=== PATIENT | male | born 1990 | race Caucasian/White ===

== ENCOUNTER 2017-01-12 13:14 | Emergency (ER) | payer OTHER ==
[~2017-01-12] VITALS: Ht 190.5 cm; Wt 98.5 kg
[2017-01-12] MEDS ORDERED: SODIUM CHLORIDE 0.9% 1,000 ML IV ONE (13:59)
[2017-01-12] MEDS ORDERED: SODIUM CHLORIDE FLUSH 10ML SYR IVF ONE (14:00)
[2017-01-12] MEDS ORDERED: FAMOTIDINE 20 MG/2 ML IVP ONE (14:00)
[2017-01-12] MEDS ORDERED: ONDANSETRON 2MG/ML, 2ML IVPush ONE (14:00)
[2017-01-12] MEDS ORDERED: SODIUM CHLORIDE 0.9% 1,000ML IVBOLUS ONE (14:00)
[2017-01-12] MEDS ORDERED: FAMOTIDINE 20 MG/2 ML ONE (14:26)
[2017-01-12] MEDS ORDERED: ONDANSETRON 2MG/ML, 2ML ONE (14:26)
[2017-01-12 14:29] LABS: HEMATOCRIT 46.2 % (39.2-51.8); HEMOGLOBIN 16.3 g/dL (13.7-18.0); WHITE BLOOD COUNT 5.8 x10^3/uL (3.4-10)
[2017-01-12 14:40] LABS: ASPARTATE AMINO TRANSFERASE 38 U/L (15-37); BLOOD UREA NITROGEN 13 mg/dL (7-18)
[2017-01-12 16:08] VITALS: BP 130/78
== END 2017-01-12 16:37 | disposition home or self-care (01) ==
LOC: ED 14:40
DX: R11.2 Nausea with vomiting, unspecified (principal)
CPT/HCPCS: 36415; 80053; 83690; 85025; 96361; 96374; 96375; 99285; J2405; J7030; S0028

== ENCOUNTER 2017-09-28 12:19 | Emergency (ER) | payer OTHER ==
[~2017-09-28] VITALS: Ht 190.5 cm; Wt 100.9 kg
[2017-09-28] MEDS ORDERED: FAMOTIDINE 20 MG/2 ML IVP ONE (13:00)
[2017-09-28] MEDS ORDERED: ONDANSETRON 2MG/ML, 2ML IVPush ONE (13:00)
[2017-09-28] MEDS ORDERED: MAALOX/HYOSCYAMINE/LIDOCAINE 45 ML BTL PO ONE (13:00)
[2017-09-28] MEDS ORDERED: ONDANSETRON 2MG/ML, 2ML ONE (13:00)
[2017-09-28] MEDS ORDERED: SODIUM CHLORIDE FLUSH 10ML SYR IVF ONE (13:00)
[2017-09-28] MEDS ORDERED: SODIUM CHLORIDE 0.9% 1,000ML IVBOLUS ONE (13:00)
[2017-09-28] MEDS ORDERED: FAMOTIDINE 20 MG/2 ML ONE (13:01)
[2017-09-28] MEDS ORDERED: MAALOX/HYOSCYAMINE/LIDOCAINE 45 ML BTL ONE (13:01)
[2017-09-28 13:26] LABS: MICROSCOPIC NOT IND
[2017-09-28 13:49] LABS: ALBUMIN 2.7 g/dL (3.4-5.0); CHLORIDE 104 mmol/L (98-107)
[2017-09-28 13:50] LABS: CULTURE INDICATED? NO
[2017-09-28 13:51] LABS: CREATININE 1.17 mg/dL (0.7-1.3)
[2017-09-28] MEDS ORDERED: PROP10TA PO (13:51)
[2017-09-28] MEDS ORDERED: CLON0.5T PO (13:52)
[2017-09-28] MEDS ORDERED: BUSP5TAB2 PO (13:52)
[2017-09-28] MEDS ORDERED: HYDR25TA11 PO (13:52)
[2017-09-28] MEDS ORDERED: ESCI20TA10 PO (13:53)
[2017-09-28 13:57] LABS: MEAN CORPUSCULAR HEMOGLOBIN 29.6 pg (27.5-34.5); MEAN CORPUSCULAR HGB CONC 31.1 g/dL (33.2-36.2); MEAN CORPUSCULAR VOLUME 95.3 fL (81-97); MEAN PLATELET VOLUME 8.9 fL (7.4-10.4); PLATELET COUNT 182 x10^3/uL (130-400); RED BLOOD COUNT 4.83 x10^6/uL (4.38-5.82)
[2017-09-28 14:04] LABS: BASOPHILS # (AUTO) 0.01 x10^3/uL (0-0.1); BASOPHILS % (AUTO) 0 % (0-1); EOSINOPHILS # (AUTO) 0.15 x10^3/uL (0-0.4); EOSINOPHILS % (AUTO) 1 % (1-7); LYMPHOCYTES # (AUTO) 1.53 x10^3/uL (1-3.4); LYMPHOCYTES % (AUTO) 12 % (22-44); MD SCAN; MONOCYTES # (AUTO) 0.67 x10^3/uL (0.2-0.8); MONOCYTES % (AUTO) 5 % (2-9); NEUTROPHILS # (AUTO) 10.24 x10^3/uL (1.8-6.8); NEUTROPHILS % (AUTO) 81 % (42-75)
[2017-09-28 14:06] LABS: ANION GAP 11 mmol/L (5-15)
[2017-09-28 14:08] LABS: ALKALINE PHOSPHATASE 132 U/L (45-117); TOTAL PROTEIN 7.3 g/dL (6.4-8.2)
[2017-09-28 14:23] LABS: ALANINE AMINOTRANSFERASE 424 U/L (12-78)
[2017-09-28] MEDS ORDERED: PROMETHAZINE 25 MG/ML, 1ML IM ONE (15:00)
[2017-09-28] MEDS ORDERED: PROMETHAZINE 25 MG/ML, 1ML ONE (15:01)
[2017-09-28 16:43] VITALS: BP 151/80
== END 2017-09-28 16:57 | disposition home or self-care (01) ==
LOC: ED 14:55
DX: K29.00 Acute gastritis without bleeding (principal); R07.89 Other chest pain
CPT/HCPCS: 36415; 74022; 76700; 80053; 81003; 83690; 85025; 93005; 96361; 96372; 96374; 96375; 99285; J2405; J2550; J7030; S0028

== ENCOUNTER 2018-07-07 11:36 | Emergency (ER) | payer OTHER ==
[~2018-07-07] VITALS: Ht 190.5 cm; Wt 100.0 kg
[~2018-07-07 11:36] MED LIST: BUSP5TAB2 PO; CLON0.5T PO; ESCI20TA10 PO; HYDR25TA11 PO; PROP10TA16 PO
--- NOTE | 2018-07-07 11:48 | NUR ---
Pt ambulates to room from triage with steady gait and balance. NADN. No obvious defecits observed.
--- NOTE | 2018-07-07 11:54 | NUR ---
FIRST CONTACT WITH PT. Friend at bedside. MINE. WYATTMD at bedside. Pt states, "I have been throwing up since 5 this morning. I had alot of blood in my vomit after I had been throwing up for a while. It hurts really bad right here (LLQ). I had diarrhea this morning, one time. It was black."
--- NOTE | 2018-07-07 11:56 | NUR ---
Pt connected to cardiac sonographer, NIBP, and continous pulse ox. Both bed rails up for safety, call light within reach. Pt denies cp, sob, trauma, syncope.
[2018-07-07] MEDS ORDERED: PANTOPRAZOLE 40 MG IV IVPush ONE (12:00)
[2018-07-07] MEDS ORDERED: MAALOX/HYOSCYAMINE/LIDOCAINE 45 ML BTL PO ONE (12:00)
[2018-07-07] MEDS ORDERED: SODIUM CHLORIDE FLUSH 10ML SYR IVF ONE ×2 (12:00→16:00)
[2018-07-07] MEDS ORDERED: PANTOPRAZOLE 40 MG IV ONE (12:02)
[2018-07-07] MEDS ORDERED: MAALOX/HYOSCYAMINE/LIDOCAINE 45 ML BTL ONE (12:03)
[2018-07-07] MEDS ORDERED: LORazepam 1MG TABLET ONE (12:41)
[2018-07-07 12:55] LABS: MEAN CORPUSCULAR HEMOGLOBIN 35.1 pg (27.5-34.5); MEAN CORPUSCULAR HGB CONC 34.7 g/dL (33.2-36.2); MEAN PLATELET VOLUME 7.7 fL (7.4-10.4); PLATELET COUNT 414 x10^3/uL (130-400); RED BLOOD COUNT 4.93 x10^6/uL (4.38-5.82); RED CELL DISTRIBUTION WIDTH 14.1 % (9.4-14.8)
[2018-07-07] MEDS ORDERED: LORazepam 1MG TABLET PO ONE (13:00)
[2018-07-07 13:16] LABS: MD YES
--- NOTE | 2018-07-07 13:19 | NUR ---
LUNCH RN: PT REQUESTING IV FLUIDS, NOTIFIED AND STATES RATHER PT DRINK PO FLUIDS AT THIS TIME, WATER GIVEN TO PT. VSS. CALL LIGHT WITHIN REACH. FRIEND AT BEDSIDE. AWAITING LABS AT THIS TIME AND RECHECK
[2018-07-07 13:46] LABS: BAND#(MANUAL) 0.27 x10^3/uL; BANDS%(MANUAL) 2 % (0-7); BASOS#(MANUAL) 0.27 x10^3/uL (0-0.1); BASOS% (MANUAL) 2 % (0-1); EOS#(MANUAL) 0.27 x10^3/uL (0.0-0.4); EOS% (MANUAL) 2 % (1-7); LYMPH#(MANUAL) 1.63 x10^3/uL (1-3.4); LYMPHS% (MANUAL) 12 % (22-44); MONOS#(MANUAL) 0.54 x10^3/uL (0.3-2.7); MONOS% (MANUAL) 4 % (2-9); SEG#(MANUAL) 10.61 x10^3/uL (1.8-6.8); SEGS% (MANUAL) 78 % (42-75)
[2018-07-07 13:47] LABS: <PLATELET ESTIMATE> INCREASED; <PLT MORPHOLOGY> NORMAL PLT MORPH; <RBC MORPHOLOGY> NORMAL
[2018-07-07 13:51] LABS: ANION GAP 16 mmol/L (5-15); CALCIUM 9.6 mg/dL (8.5-10.1); CHLORIDE 102 mmol/L (98-107); CREATININE 1.76 mg/dL (0.7-1.3)
[2018-07-07 13:52] LABS: ALANINE AMINOTRANSFERASE 89 U/L (12-78); ALBUMIN 4.3 g/dL (3.4-5.0); ALKALINE PHOSPHATASE 77 U/L (45-117); TOTAL PROTEIN 8.9 g/dL (6.4-8.2)
--- NOTE | 2018-07-07 15:00 | NUR ---
Hourly rounding on pt. NADN. Pt resting on gurney watching T.V. Pt's friend at bedside. Pt connected to clinical research monitor, NIBP, and continous pulse ox. Pt has RR at 15 and VS are stable, see charting of VS. No needs expressed at this time. Call light within reach.
[2018-07-07 15:45] LABS: ALBUMIN 3.2 g/dL (3.4-5.0); ANION GAP 26 mmol/L (5-15); CHLORIDE 96 mmol/L (98-107)
[2018-07-07 16:00] LABS: CALCIUM 7.1 mg/dL (8.5-10.1)
[2018-07-07] MEDS ORDERED: SODIUM CHLORIDE 0.9% 1,000ML IVBOLUS ONE (16:00)
[2018-07-07 16:01] LABS: CREATININE 1.37 mg/dL (0.7-1.3)
--- NOTE | 2018-07-07 16:33 | NUR ---
PIV fluids infusing per EMAR. Pt ambulated to restroom and back to ED room with steady gait and balance. Pt reconnected to NIBP, continous pulse ox, and electronic device monitor. Pt states, "I just feel dried out." Pt denies nausea and vomiting, cp, or sob. Call light within reach. Personal belongings within reach. No other needs expressed at this time.
--- NOTE | 2018-07-07 18:04 | NUR ---
Patient given discharge instructions and they have confirmed that they understand the instructions. Patient ambulatory with steady gait. Pt left with all personal belongings, d/c paperwork, prescriptions, and work note.
[2018-07-07 18:07] VITALS: BP 118/78
== END 2018-07-07 18:09 | disposition home or self-care (01) ==
LOC: ED 12:02
DX: K29.01 Acute gastritis with bleeding (principal); E86.0 Dehydration; N28.9 Disorder of kidney and ureter, unspecified; F41.1 Generalized anxiety disorder; F17.200 Nicotine dependence, unspecified, uncomplicated
CPT/HCPCS: 36415; 76700; 80048; 80053; 82040; 83690; 85025; 96374; 99284; C9113; J7030

== ENCOUNTER 2018-08-09 14:06 | Inpatient (IN) | payer OTHER ==
[~2018-08-09] VITALS: Ht 190.5 cm; Wt 95.8 kg
--- NOTE | 2018-08-09 14:22 | NUR ---
PATIENT PRESENTS TO ED TODAY FOR SUDDEN ONSET SOB, "SHAKING", AND N/V STARTING THIS AM AT 0300, DENIES ABD PAIN/DIARRHEA. SKIN PALE, WARM, DRY. SHALLOW RAPID BREATHING, PATIENT ANXIOUS UPON EXAM. MD AT BEDSIDE, AWAITING MD ORDERS, CALL LIGHT WITHIN REACH. FRIEND/FAMILY AT BEDSIDE, CALL LIGHT WITHIN REACH.
[2018-08-09] MEDS ORDERED: HALOPERIDOL 5 MG/ML IM STA (14:26)
[2018-08-09] MEDS ORDERED: TRAZ50TA66 PO (14:28)
[2018-08-09] MEDS ORDERED: DIPHENHYDRAMINE 50 MG/ML, 1ML IVPush ONE (14:30)
[2018-08-09] MEDS ORDERED: SODIUM CHLORIDE FLUSH 10ML SYR IVF ONE (14:30)
[2018-08-09] MEDS ORDERED: ONDANSETRON 2MG/ML, 2ML IVPush ONE (14:30)
[2018-08-09] MEDS ORDERED: DIPHENHYDRAMINE 50 MG/ML, 1ML ONE (14:36)
[2018-08-09] MEDS ORDERED: HALOPERIDOL 5 MG/ML ONE (14:36)
[2018-08-09] MEDS ORDERED: ONDANSETRON 2MG/ML, 2ML ONE (14:36)
[2018-08-09] MEDS: LACTATED RINGERS 1,000 ML IV SCH ×5 (14:42→18:30)
--- NOTE | 2018-08-09 14:46 | NUR ---
PATIENT AMB WITH STEADY GAIT TO BATHROOM, VOMITING IN BATHROOM, PATIENT BACK TO BED, EMESIS BAG PROVIDED, HR 130'S-140'S, EKG COMPLETED BY EMT. PATIENT ON MIXER WHIPPED TOPPING, MEDICATIONS ADMINISTERED PER ORDER, NO ADDITIONAL NEEDS AT THIS TIME, CALL LIGHT WITHIN REACH, PATIENT A+OX4, FRIEND/FAMILY REMAINS AT PATIENT BEDSIDE.
[2018-08-09 14:53] LABS: ALBUMIN 4.4 g/dL (3.4-5.0); ANION GAP 24 mmol/L (5-15); CALCIUM 8.8 mg/dL (8.5-10.1); CHLORIDE 99 mmol/L (98-107); CREATININE 1.58 mg/dL (0.7-1.3)
[2018-08-09 14:55] LABS: ALKALINE PHOSPHATASE 84 U/L (45-117); BILIRUBIN,TOTAL 0.7 mg/dL (0.2-1.0); TOTAL PROTEIN 8.9 g/dL (6.4-8.2)
[2018-08-09 14:57] LABS: ALANINE AMINOTRANSFERASE 133 U/L (12-78)
--- NOTE | 2018-08-09 15:10 | NUR ---
LUNCH RN: Pt given additional warm blankets and IVF slowed, pt continues shaking, friend/family member remains at bedside.
--- NOTE | 2018-08-09 15:45 | NUR ---
LUNCH RN: IVF complete, pt still c/o nausea, MD to be made aware. Pt's HR and RR decreased, pt not shaking anymore.
--- NOTE | 2018-08-09 15:47 | NUR ---
LUNCH RN: Dr. Bhatt at bedside to re-evaluate pt and discuss ED findings. MD made aware of pt's continued nausea, new orders to be placed. Report given to primary RNSusan.
[2018-08-09] MEDS ORDERED: PROMETHAZINE 25 MG/ML, 1ML ONE (16:04)
--- NOTE | 2018-08-09 16:07 | NUR ---
PATIENT STATING NAUSEA IS COMING BACK, MD AWARE, PHENERGAN ADMINISTERED PER MD ORDER, PATIENT SITTING IN GURNEY WATCHING TV WITH FAMILY/FRIEND AT BEDSIDE. AWAITING FURTHER ORDERS.
[2018-08-09] MEDS ORDERED: PROMETHAZINE 25 MG/ML, 1ML IM ONE (16:30)
[2018-08-09] MEDS ORDERED: SODIUM CHLORIDE 0.9% 1,000ML IVBOLUS ONE (17:00)
--- NOTE | 2018-08-09 17:02 | NUR ---
NEW ORDERS, IVF ADMINISTERED PER ORDER, PATIENT SITTING ON GURNEY WATCHING TV AT THIS TIME, NADN. PATIENT REPORTS FEELING BETTER. VS UPDATED IN CHART, HR 123. AWAITING IVF. NO ADDITIONAL NEEDS.
--- NOTE | 2018-08-09 17:15 | NUR ---
MD AT BEDSIDE, PATIENT TO BE ADMITTED.
[2018-08-09 17:35] LABS: FIO2 RA %
--- NOTE | 2018-08-09 17:48 | NUR ---
break coverage: assumed care of pt on behalf of primary RN for break coverage. pt resting on gurney in position of comfort in no apparent distress
[2018-08-09 18:04] LABS: BASOPHILS # (AUTO) 0.05 x10^3/uL (0-0.1); BASOPHILS % (AUTO) 0 % (0-1); EOSINOPHILS # (AUTO) 0.02 x10^3/uL (0-0.4); EOSINOPHILS % (AUTO) 0 % (1-7); LYMPHOCYTES # (AUTO) 1.07 x10^3/uL (1-3.4); LYMPHOCYTES % (AUTO) 6 % (22-44); MD NO; MEAN CORPUSCULAR HEMOGLOBIN 33.9 pg (27.5-34.5); MEAN CORPUSCULAR HGB CONC 34.4 g/dL (33.2-36.2); MEAN CORPUSCULAR VOLUME 98.5 fL (81-97); MEAN PLATELET VOLUME 6.9 fL (7.4-10.4); MONOCYTES # (AUTO) 0.88 x10^3/uL (0.2-0.8); MONOCYTES % (AUTO) 5 % (2-9); NEUTROPHILS % (AUTO) 89 % (42-75); PLATELET COUNT 317 x10^3/uL (130-400); RED BLOOD COUNT 4.66 x10^6/uL (4.38-5.82); RED CELL DISTRIBUTION WIDTH 13.3 % (9.4-14.8)
--- NOTE | 2018-08-09 18:25 | NUR ---
REPORT TO FREDY CHAPMAN.
[2018-08-09] MEDS ORDERED: ONDANSETRON 2MG/ML, 2ML IVPush PRN (18:30)
[2018-08-09] MEDS ORDERED: BISACODYL 10 MG SUPP PR PRN (18:30)
[2018-08-09] MEDS ORDERED: ACETAMINOPHEN 325 MG TABLET PO PRN (18:30)
[2018-08-09] MEDS ORDERED: SODIUM CHLORIDE 0.9% 1,000 ML IV SCH (18:30)
[2018-08-09] MEDS ORDERED: POLYETHYLENE GLYCOL 17 GM PACKET PO PRN (18:30)
--- NOTE | 2018-08-09 18:32 | NUR ---
[facility] AT BEDSIDE.
--- NOTE | 2018-08-09 18:40 | NUR ---
PATIENT BEING TRANSPORTED/ADMITTED UPSTAIRS AT THIS TIME,
[2018-08-09 18:49] LABS: ACETONE, SERUM Negative (Negative)
[2018-08-09 18:59] VITALS: BP 147/85
[2018-08-09 19:47] LABS: SALICYLATE LEVEL < 1.7 mg/dL (2.8-20.0)
[2018-08-09] MEDS: BUSPIRONE 5 MG TABLET PO SCH (20:01)
[2018-08-09 20:31] VITALS: BP 129/76
[2018-08-09 20:36] LABS: MICROSCOPIC NOT IND
[2018-08-09 20:39] LABS: CULTURE INDICATED? NO
[2018-08-09] MEDS ORDERED: TRAZODONE 50MG TABLET PO SCH (21:00)
[2018-08-09 23:37] LABS: ANION GAP 11 mmol/L (5-15); CALCIUM 7.4 mg/dL (8.5-10.1); CHLORIDE 100 mmol/L (98-107); CREATININE 1.44 mg/dL (0.7-1.3)
[2018-08-09] MEDS: NS + 20MEQ KCL 1,000 ML IV SCH (23:59)
[2018-08-10 00:18] VITALS: BP 123/74
[2018-08-10] MEDS: NS + 20MEQ KCL 1,000 ML IV SCH (05:56)
[2018-08-10 06:06] LABS: BASOPHILS # (AUTO) 0.02 x10^3/uL (0-0.1); BASOPHILS % (AUTO) 0 % (0-1); EOSINOPHILS # (AUTO) 0.05 x10^3/uL (0-0.4); EOSINOPHILS % (AUTO) 1 % (1-7); LYMPHOCYTES # (AUTO) 1.31 x10^3/uL (1-3.4); LYMPHOCYTES % (AUTO) 22 % (22-44); MD NO; MEAN CORPUSCULAR HGB CONC 33.7 g/dL (33.2-36.2); MEAN CORPUSCULAR VOLUME 97.9 fL (81-97); MEAN PLATELET VOLUME 6.7 fL (7.4-10.4); MONOCYTES # (AUTO) 0.55 x10^3/uL (0.2-0.8); MONOCYTES % (AUTO) 9 % (2-9); NEUTROPHILS # (AUTO) 4.14 x10^3/uL (1.8-6.8); NEUTROPHILS % (AUTO) 68 % (42-75); PLATELET COUNT 247 x10^3/uL (130-400); RED BLOOD COUNT 4.25 x10^6/uL (4.38-5.82); RED CELL DISTRIBUTION WIDTH 13.4 % (9.4-14.8)
[2018-08-10 06:14] LABS: CHLORIDE 103 mmol/L (98-107)
[2018-08-10 06:24] LABS: ALBUMIN 3.3 g/dL (3.4-5.0); ALKALINE PHOSPHATASE 67 U/L (45-117); ANION GAP 11 mmol/L (5-15); BILIRUBIN,TOTAL 1.1 mg/dL (0.2-1.0); CALCIUM 7.6 mg/dL (8.5-10.1); CREATININE 1.09 mg/dL (0.7-1.3); TOTAL PROTEIN 6.7 g/dL (6.4-8.2)
[2018-08-10 06:28] LABS: ALANINE AMINOTRANSFERASE 106 U/L (12-78)
[2018-08-10 06:50] VITALS: BP 121/78
[2018-08-10] MEDS ORDERED: PROPRANOLOL 10 MG TABLET PO SCH (09:00)
[2018-08-10] MEDS ORDERED: ESCITALOPRAM 10MG TABLET PO SCH (09:00)
[2018-08-10] MEDS ORDERED: SENNA/DOCUSATE TABLET PO SCH (09:00)
[2018-08-10] MEDS: BUSPIRONE 5 MG TABLET PO SCH (09:44)
[2018-08-10] MEDS ORDERED: MAGNESIUM SULFATE 3 GM in SODIUM CHLORIDE 0.9% 100 ML IV ONE (10:00)
[2018-08-10] MEDS ORDERED: POTASSIUM CHLORIDE 40 MEQ in SODIUM CHLORIDE 0.9% 500 ML IV ONE (10:00)
[2018-08-10] MEDS ORDERED: POTASSIUM CHLORIDE 20 MEQ TAB.ER.PRT PO ONE (10:30)
== END 2018-08-10 15:40 | disposition home or self-care (01) | DRG 683 ==
LOC: ED 15:18 → EDIP 17:43 → 3NE 18:49 → DCLOUNGE 08-10 15:34
PROVIDERS: ADMIT Internal Medicine; ATTEND Internal Medicine
DX: N17.0 Acute kidney failure with tubular necrosis (principal); E87.2 Acidosis; R65.10 Systemic inflammatory response syndrome (SIRS) of non-infectious origin without acute organ dysfunction; D72.829 Elevated white blood cell count, unspecified; E83.42 Hypomagnesemia; E66.9 Obesity, unspecified; Z68.26 Body mass index [BMI] 26.0-26.9, adult; E87.6 Hypokalemia; F17.210 Nicotine dependence, cigarettes, uncomplicated; F32.9 Major depressive disorder, single episode, unspecified; F41.1 Generalized anxiety disorder; G43.A0 Cyclical vomiting, in migraine, not intractable; G47.00 Insomnia, unspecified
CPT/HCPCS: 36415; 36600; 71045; 80048; 80053; 80074; 80307; 81003; 82010; 82607; 82803; 83605; 83690; 83735; 85025; 93005; 96372; 96374; G0378; J2405; J2550; J3475; J3480; J1200; J1630; J7030; J7040; J7120; Q0177

== ENCOUNTER 2019-03-08 05:53 | Emergency (ER) | payer SELFPAY ==
[~2019-03-08] VITALS: Ht 190.5 cm; Wt 98.9 kg
[~2019-03-08 05:53] MED LIST changes: +ALLO100T30 PO; +COLC0.6C3 PO; +DOXE10CA PO; +HYDR-826 PO; -HYDR25TA11 PO; +PANT40TA5 PO; +SUCR1TAB33 PO; +TRAZ50TA66 PO
[2019-03-08] MEDS ORDERED: LORazepam 1MG TABLET PO ONE ×2 (06:30→13:00)
[2019-03-08] MEDS ORDERED: BUSP10TA PO (06:39)
[2019-03-08 06:49] LABS: BASOPHILS # (AUTO) 0.02 x10^3/uL (0-0.1); BASOPHILS % (AUTO) 0 % (0-1); EOSINOPHILS # (AUTO) 0.07 x10^3/uL (0-0.4); EOSINOPHILS % (AUTO) 1 % (1-7); LYMPHOCYTES # (AUTO) 1.64 x10^3/uL (1-3.4); LYMPHOCYTES % (AUTO) 25 % (22-44); MD NO; MEAN CORPUSCULAR HEMOGLOBIN 33.1 pg (27.5-34.5); MEAN CORPUSCULAR HGB CONC 34.1 g/dL (33.2-36.2); MEAN CORPUSCULAR VOLUME 97.1 fL (81-97); MEAN PLATELET VOLUME 6.5 fL (7.4-10.4); MONOCYTES # (AUTO) 0.65 x10^3/uL (0.2-0.8); MONOCYTES % (AUTO) 10 % (2-9); NEUTROPHILS % (AUTO) 64 % (42-75); PLATELET COUNT 347 x10^3/uL (130-400); RED BLOOD COUNT 4.96 x10^6/uL (4.38-5.82); RED CELL DISTRIBUTION WIDTH 12.8 % (9.4-14.8)
[2019-03-08 07:02] LABS: ANION GAP 12 mmol/L (5-15); CALCIUM 8.9 mg/dL (8.5-10.1); CHLORIDE 107 mmol/L (98-107)
--- NOTE | 2019-03-08 07:07 | NUR ---
RECEIVED REPORT FROM JOSE PRITCHARD RN. PT RESTING ON GURNEY. PT HR NOTED TO BE TACHY AT 150 IN TRIAGE. PT PLACED ON MONITORS. OTHER GARAGE DOOR SECURED. PERSONAL BELONGINGS (BAGS 2 OF 2) PLACED IN SECURE LOCKER. SITTER AT BEDSIDE.
[2019-03-08 07:09] LABS: ALANINE AMINOTRANSFERASE 35 U/L (12-78); ALKALINE PHOSPHATASE 66 U/L (45-117); BILIRUBIN,TOTAL 0.4 mg/dL (0.2-1.0); CREATININE 0.95 mg/dL (0.7-1.3); T4 (THYROXINE) 7.3 mcg/dL (4.5-12.1); TOTAL PROTEIN 8.7 g/dL (6.4-8.2); TROPONIN I < 0.015 ng/mL (0.000-0.045)
[2019-03-08 07:11] LABS: SALICYLATE LEVEL < 1.7 mg/dL (2.8-20.0)
[2019-03-08] MEDS ORDERED: LORazepam 2 MG/ML, 1ML ONE ×2 (07:12→08:58)
[2019-03-08 07:30] LABS: AMPHETAMINE SCREEN, URINE Negative (Negative); BARBITURATE SCREEN, URINE Negative (Negative); BENZODIAZEPINE SCREEN, URINE Negative (Negative); CANNABINOID SCREEN, URINE Negative (Negative); COCAINE SCREEN, URINE Negative (Negative); METHADONE SCREEN, URINE Negative (Negative); OPIATE SCREEN, URINE Negative (Negative)
[2019-03-08] MEDS ORDERED: SODIUM CHLORIDE 0.9% 1,000ML IVBOLUS ONE ×3 (07:30→12:00)
[2019-03-08] MEDS ORDERED: LORazepam 2 MG/ML, 1ML IVPush ONE ×3 (07:30→12:00)
--- NOTE | 2019-03-08 08:12 | NUR ---
PT PROVIDED W/ SI BREAKFAST TRAY. MINE. VSS. REMAINS ON SAFETY RISK LEAD. SITTER REMAINS AT BEDSIDE. ROOM REMAINS SECURE.
[2019-03-08] MEDS ORDERED: NICOTINE 21 MG/24 HR PATCH.TD24 ONE (08:58)
[2019-03-08] MEDS ORDERED: THIAMINE 100MG TABLET ONE (08:58)
[2019-03-08] MEDS ORDERED: NICOTINE 21 MG/24 HR PATCH.TD24 TD ONE (09:00)
[2019-03-08] MEDS ORDERED: THIAMINE 100MG TABLET PO ONE (09:00)
--- NOTE | 2019-03-08 09:08 | NUR ---
SPOKE W/ VINOD MORENO IN REGARDS TO PT'S HR AND SHAKINESS. NEW ORDERS PLACED. PT MEDICATED PER APR.
--- NOTE | 2019-03-08 10:21 | NUR ---
PT RESTING ON LETTY. MINE. SITTER REMAINS AT BEDSIDE. ROOM REMAINS SECURE.
--- NOTE | 2019-03-08 11:23 | NUR ---
PT RESTING ON GURNEY. NADN. CM.
[2019-03-08] MEDS ORDERED: MAGNESIUM SULFATE PMX 2GM/50ML 50 ML ONE (11:52)
[2019-03-08] MEDS ORDERED: MAGNESIUM SULFATE PMX 2GM/50ML 50 ML IV ONE (12:00)
--- NOTE | 2019-03-08 12:02 | NUR ---
BRIONNA, PSYCH GOVERNMENT SALES MANAGER AT BEDSIDE.
--- NOTE | 2019-03-08 12:40 | NUR ---
PT WILL NOT BE PLACED ON HOLD. OKAY TO DC W/ TACHYCARDIA AND REFERRAL TO CARDIOLOGY PER ERP DR. HOOK.
[2019-03-08] MEDS ORDERED: LORazepam 1MG TABLET ONE (13:05)
[2019-03-08 13:40] VITALS: BP 126/78
--- NOTE | 2019-03-08 13:41 | NUR ---
PT RESTING ON GURNEY. NADN. CM.
== END 2019-03-08 14:08 | disposition home or self-care (01) ==
LOC: ED 06:35
DX: F10.229 Alcohol dependence with intoxication, unspecified (principal); F32.9 Major depressive disorder, single episode, unspecified; R00.0 Tachycardia, unspecified; E87.6 Hypokalemia; Y90.9 Presence of alcohol in blood, level not specified
CPT/HCPCS: 36415; 71045; 80053; 80307; 83690; 84436; 84443; 84484; 85025; 87081; 87880; 93005; 96365; 96366; 96375; 96376; 99284; J2060; J3475; J7030

== ENCOUNTER 2019-03-21 09:39 | Emergency (ER) | payer SELFPAY ==
[~2019-03-21] VITALS: Ht 190.5 cm; Wt 97.0 kg
[~2019-03-21 09:39] MED LIST changes: +BUSP10TA PO
--- NOTE | 2019-03-21 10:04 | NUR ---
THIS IS A 28 YO MALE WHO PRESENTS TO THE ER C/O RIGHT FOOT PAIN/SWELLING SINCE YESTERDAY. PT HAS HR IN THE 120'S, PT STATES "MY HEART RATE IS ALWAYS THAT FAST. THEY COMMENT ON IT EVERY TIME I GO TO THE DOCTOR". PT DENIES FEELING PALPITATIONS, CP OR SOB. PT STATES HE HAS BEEN TO A MANAGER SPECIALTY FOR THE SAME. PT AO X 4. SKIN WARM AND DRY. RESP EVEN AND UNLABORED. KESHIA HOOK WAS AT BEDSIDE FOR EVAL. PT ON CONT CARDIAC, BP AND O2 MONITORS. CALL LIGHT WITHIN REACH. WILL CONT TO MONITOR PT.
[2019-03-21] MEDS ORDERED: KETOROLAC 60 MG/2 ML ONE (10:13)
[2019-03-21] MEDS ORDERED: LORazepam 1MG TABLET ONE (10:14)
[2019-03-21] MEDS ORDERED: KETOROLAC 30 MG/1 ML IM ONE (10:30)
[2019-03-21] MEDS ORDERED: LORazepam 1MG TABLET PO ONE (10:30)
[2019-03-21 10:38] LABS: ALBUMIN 4.4 g/dL (3.4-5.0); ANION GAP 16 mmol/L (5-15); CALCIUM 10.2 mg/dL (8.5-10.1); CHLORIDE 98 mmol/L (98-107); CREATININE 1.33 mg/dL (0.7-1.3)
[2019-03-21] MEDS ORDERED: COLCHICINE 0.6 MG CAPSULE PO ONE ×2 (11:00→12:00)
--- NOTE | 2019-03-21 11:13 | NUR ---
KESHIA HOOK AT BEDSIDE FOR RECHECK/EXPLANATION OF RESULTS. PT RESTING ON GURNEY. NAD NOTED. PT REPORTS CONT PAIN WITH TOUCH OR WALKING. PT REPORTS "FEELING CALMER". PT ON CONT BP, CARDIAC AND O2 MONITORS. CALL LIGHT WITHIN REACH. WILL CONT TO MONITOR PT.
[2019-03-21] MEDS ORDERED: HYDROcodone/APAP 10/325 MG TABLET PO ONE (11:30)
[2019-03-21] MEDS ORDERED: HYDROcodone/APAP 10/325 MG TABLET ONE (11:34)
[2019-03-21] MEDS ORDERED: COLCHICINE 0.6 MG CAPSULE ONE ×2 (11:35→12:29)
--- NOTE | 2019-03-21 11:43 | NUR ---
PT MEDICATED ORDERED FOR PAIN. PT REPORTS AT REST, 0/10 PAIN BUT 8/10 PAIN WITH TOUCH/WEIGHT BEARING. PT AO X 4. SKIN PWD. RESP EVEN AND UNLABORED. PT POSITIONED FOR COMFORT IN QUIET/DARK ROOM. PT ON CONT BP, CARDIAC AND O2 MONITORS. WILL CONT TO MONITOR PT.
[2019-03-21 12:35] VITALS: BP 131/85
--- NOTE | 2019-03-21 12:47 | NUR ---
PT MEDICATED ORDERED FOR GOUT. PT PROVIDED WITH CAB VOUCHER PER PT'S REQUEST AND WHEELED OUT PER PT'S REQUEST. PT ABLE TO BEAR WEIGHT AND TRANSFER SELF FROM GURNEY TO WHEELCHAIR.
== END 2019-03-21 12:49 | disposition home or self-care (01) ==
LOC: ED 11:50
DX: M10.071 Idiopathic gout, right ankle and foot (principal); F41.9 Anxiety disorder, unspecified; R00.0 Tachycardia, unspecified
CPT/HCPCS: 36415; 80048; 82040; 84550; 93005; 96372; 99284; J1885

== ENCOUNTER 2019-04-26 22:35 | Emergency (ER) | payer OTHER ==
[~2019-04-26] VITALS: Ht 190.5 cm; Wt 98.0 kg
--- NOTE | 2019-04-26 22:59 | NUR ---
pt resting on gurney, monitors applied, siderail sup x2, call light within reach. pa at bedside for eval
[2019-04-26] MEDS ORDERED: LORazepam 1MG TABLET ONE (23:05)
--- NOTE | 2019-04-26 23:07 | NUR ---
pt up to rr with steady gait
--- NOTE | 2019-04-26 23:09 | NUR ---
pt medicated per mar
[2019-04-26] MEDS ORDERED: LORazepam 1MG TABLET PO ONE (23:30)
[2019-04-27] MEDS ORDERED: LORazepam 0.5MG TABLET PO ONE
[2019-04-27] MEDS ORDERED: LORazepam 0.5MG TABLET ONE (00:07)
[2019-04-27 00:09] VITALS: BP 142/95
== END 2019-04-27 00:38 | disposition home or self-care (01) ==
LOC: ED 23:26
DX: F10.239 Alcohol dependence with withdrawal, unspecified (principal); F41.9 Anxiety disorder, unspecified; Z72.9 Problem related to lifestyle, unspecified; Y90.0 Blood alcohol level of less than 20 mg/100 ml; Z87.891 Personal history of nicotine dependence
CPT/HCPCS: 99283

== ENCOUNTER 2019-04-27 07:07 | Emergency (ER) | payer SELFPAY ==
[~2019-04-27] VITALS: Ht 190.5 cm; Wt 96.0 kg
[2019-04-27] MEDS ORDERED: ONDANSETRON 2MG/ML, 2ML ONE (07:16)
[2019-04-27] MEDS ORDERED: LORazepam 2 MG/ML, 1ML ONE (07:16)
[2019-04-27] MEDS ORDERED: SODIUM CHLORIDE 0.9% 1,000ML IVBOLUS ONE (07:30)
[2019-04-27] MEDS ORDERED: THIAMINE 100 MG in SODIUM CHLORIDE 0.9% 50 ML IVPB ONE (07:30)
[2019-04-27] MEDS ORDERED: ONDANSETRON 2MG/ML, 2ML IVPush ONE (07:30)
[2019-04-27] MEDS ORDERED: LORazepam 2 MG/ML, 1ML IVPush ONE (07:30)
[2019-04-27] MEDS ORDERED: LORazepam 2 MG/ML, 1ML IVPush PRN (07:30)
[2019-04-27 07:50] LABS: BASOPHILS # (AUTO) 0.02 x10^3/uL (0-0.1); BASOPHILS % (AUTO) 1 % (0-1); EOSINOPHILS # (AUTO) 0.06 x10^3/uL (0-0.4); EOSINOPHILS % (AUTO) 2 % (1-7); LYMPHOCYTES # (AUTO) 0.81 x10^3/uL (1-3.4); LYMPHOCYTES % (AUTO) 19 % (22-44); MD NO; MEAN CORPUSCULAR HEMOGLOBIN 32.5 pg (27.5-34.5); MEAN CORPUSCULAR HGB CONC 33.7 g/dL (33.2-36.2); MEAN CORPUSCULAR VOLUME 96.4 fL (81-97); MEAN PLATELET VOLUME 6.6 fL (7.4-10.4); MONOCYTES # (AUTO) 0.34 x10^3/uL (0.2-0.8); MONOCYTES % (AUTO) 8 % (2-9); NEUTROPHILS # (AUTO) 2.97 x10^3/uL (1.8-6.8); NEUTROPHILS % (AUTO) 71 % (42-75); PLATELET COUNT 124 x10^3/uL (130-400); RED BLOOD COUNT 5.45 x10^6/uL (4.38-5.82); RED CELL DISTRIBUTION WIDTH 14.4 % (9.4-14.8)
--- NOTE | 2019-04-27 08:00 | NUR ---
pt laying in bed, eyes closed, respirations even and unlabored, no signs of distress, lights off to promote rest.
[2019-04-27 08:07] LABS: ALANINE AMINOTRANSFERASE 268 U/L (12-78); ALBUMIN 4.1 g/dL (3.4-5.0); ANION GAP 13 mmol/L (5-15); CALCIUM 8.9 mg/dL (8.5-10.1); CHLORIDE 101 mmol/L (98-107); CREATININE 0.91 mg/dL (0.7-1.3)
[2019-04-27 08:09] LABS: ALKALINE PHOSPHATASE 96 U/L (45-117); BILIRUBIN,TOTAL 0.7 mg/dL (0.2-1.0); TOTAL PROTEIN 9.1 g/dL (6.4-8.2)
[2019-04-27] MEDS ORDERED: POTASSIUM CHLORIDE 40 MEQ in SODIUM CHLORIDE 0.9% 500 ML IV ONE (08:30)
[2019-04-27] MEDS ORDERED: POTASSIUM CHLORIDE 20 MEQ TAB.ER.PRT PO ONE (09:00)
--- NOTE | 2019-04-27 09:49 | NUR ---
pt laying in bed, watching tv, lights off to promote rest.
--- NOTE | 2019-04-27 10:27 | NUR ---
PT LAYING IN BED, D-STAT BELOW 90 ON RA, 1.5L O2 ADMINISTERED - ABOVE 90% WHEN SLEEPING. NO SIGNS OF DISTRESS, LIGHTS OFF TO PROMOTE REST.
[2019-04-27 10:35] LABS: AMPHETAMINE SCREEN, URINE Negative (Negative); BARBITURATE SCREEN, URINE Negative (Negative); BENZODIAZEPINE SCREEN, URINE Negative (Negative); CANNABINOID SCREEN, URINE Negative (Negative); COCAINE SCREEN, URINE Negative (Negative); METHADONE SCREEN, URINE Negative (Negative); OPIATE SCREEN, URINE Negative (Negative)
--- NOTE | 2019-04-27 11:30 | NUR ---
PT LAYING IN BED, EYES CLOSED, RESPIRATIONS EVEN AND UNLABORED, NO SIGNS OF DISTRESS, LIGHTS OFF TO PROMOTE REST.
[2019-04-27] MEDS ORDERED: POTASSIUM CHLORIDE 20 MEQ TAB.ER.PRT ONE (11:32)
--- NOTE | 2019-04-27 12:12 | NUR ---
PT CONDITION UNCHANGED, WILL CONTINUE TO MONITOR.
[2019-04-27 12:13] VITALS: BP 113/72
--- NOTE | 2019-04-27 12:31 | NUR ---
PT RESTING CALMLY IN BED, VSS, PT SATING 64% ON RA. PT IV POTASSIUM NOT INFUSED COMPLETELY. ERP AWARE. PT HAS RECEIVED ORAL POTASSIUM ALSO. PER ERP, IF PT CAN KEEP DOWN ORAL K+, THEN PT DOESN'T HAVE TO FINISH IV POTASSIUM.
--- NOTE | 2019-04-27 12:36 | NUR ---
SALES AND MARKETING DIRECTOR: Patient/Caregiver given discharge instructions and they have confirmed that they understand the instructions. Patient ambulatory with steady gait. PT GIVEN TAXI VOUCHER FOR TRANSPORTATION TO [facility]
== END 2019-04-27 12:36 | disposition home or self-care (01) ==
LOC: ED 08:48
DX: F10.221 Alcohol dependence with intoxication delirium (principal); R11.2 Nausea with vomiting, unspecified; Y90.9 Presence of alcohol in blood, level not specified; Z72.9 Problem related to lifestyle, unspecified; M10.9 Gout, unspecified
CPT/HCPCS: 36415; 80053; 80307; 83690; 83735; 84100; 84443; 85025; 96361; 96365; 96366; 96367; 96375; 99285; J2060; J2405; J3411; J3480; J7030; J7040